=== PATIENT | male | born 1985 ===

== ENCOUNTER 2019-08-03 03:23 | Emergency (ER) | payer OTHER ==
[~2019-08-03] VITALS: Ht 165.1 cm; Wt 79.2 kg
[2019-08-03] MEDS ORDERED: VERA120T5 PO (03:33)
--- NOTE | 2019-08-03 03:40 | NUR ---
PT TO TRAUMA 4, REMAINS AA AND O TIMES 4, PREPARED FOR CARDIOVERSION. PT NTOES THAT HE HAS BEEN THROUGH THIS BEFORE AND THAT IT IS THE ONLY THING THAT WORKS TO GET HIM BACK INTO SR.
[2019-08-03] MEDS ORDERED: ETOMIDATE 20 MG/10 ML ONE (03:42)
[2019-08-03] MEDS ORDERED: SODIUM CHLORIDE 0.9% 1,000ML IVBOLUS ONE (04:00)
[2019-08-03] MEDS ORDERED: ETOMIDATE 20 MG/10 ML IVPush ONE (04:00)
--- NOTE | 2019-08-03 04:04 | NUR ---
CONSENT SIGNED PT PT, ERMD AND RN. PT EDUCATED ON PROCEDURE. PT TOLERATED PROCEDURE WELL. REPEAT EKG DONE POST CARDIOVERSION
--- NOTE | 2019-08-03 04:07 | NUR ---
HOLDING NS BOLUS PER MD
--- NOTE | 2019-08-03 04:17 | NUR ---
PT NOW AWAKE. PT DENIES COMPLAINTS. POC DISCUSSED. PT GIVEN WARM BLANKET PER REQUEST. AWAITING LABS. VSS. PT DENIES FURTHER NEEDS AT THIS TIME.
[2019-08-03 04:20] VITALS: BP 119/78
--- NOTE | 2019-08-03 04:22 | NUR ---
WASTED 10MG ETOMIDATE WITH AIME GABRIEL IN MED ROOM.
[2019-08-03 04:28] LABS: MEAN CORPUSCULAR HGB CONC 32.8 g/dL (33.2-36.2); MEAN CORPUSCULAR VOLUME 91.4 fL (81-97); MEAN PLATELET VOLUME 9.2 fL (7.4-10.4); PLATELET COUNT 304 x10^3/uL (130-400); RED BLOOD COUNT 5.64 x10^6/uL (4.38-5.82); RED CELL DISTRIBUTION WIDTH 13.4 % (9.4-14.8)
[2019-08-03 04:29] LABS: ALBUMIN 3.9 g/dL (3.4-5.0); ANION GAP 8 mmol/L (5-15); CHLORIDE 107 mmol/L (98-107); CREATININE 1.15 mg/dL (0.7-1.3)
--- NOTE | 2019-08-03 04:53 | NUR ---
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 PTS INQUIRING WHAT WE ARE WAITING ON. THEY WERE INFORMED WE ARE WAITING ON LABS. PT AND SPOUSE DENY FURTHER NEEDS. NOT 5 MINUTES LATER PT WAS SEEN BRISKLY WALKING OUT OF ED AND THEN RUNNING TO HIS CAR. PT REFUSED ATTEMPTS TO RETURN TO ED. IV CATH WAS FOUND IN ROOM WITH TIP INTACT. INFORMED.
[2019-08-03 05:03] LABS: BASOPHILS # (AUTO) 0.07 x10^3/uL (0-0.1); BASOPHILS % (AUTO) 1 % (0-1); EOSINOPHILS # (AUTO) 0.09 x10^3/uL (0-0.4); EOSINOPHILS % (AUTO) 1 % (1-7); LYMPHOCYTES % (AUTO) 23 % (22-44); MD SCAN; MONOCYTES # (AUTO) 1.56 x10^3/uL (0.2-0.8); MONOCYTES % (AUTO) 11 % (2-9); NEUTROPHILS # (AUTO) 8.86 x10^3/uL (1.8-6.8); NEUTROPHILS % (AUTO) 64 % (42-75)
== END 2019-08-03 04:57 | disposition left against medical advice (07) ==
LOC: ED 04:45
DX: R00.0 Tachycardia, unspecified (principal); R00.2 Palpitations
CPT/HCPCS: 36415; 80048; 82040; 83735; 85025; 92960; 93005; 99152; 99291